=== PATIENT | male | born 1990 | race Asian ===

== ENCOUNTER 2020-07-10 21:59 | Emergency (ER) | payer BC, SELFPAY ==
[2020-07-10 22:01] VITALS: BP 130/104; PULSE 92; RESP 15; TEMP 36.9; O2SAT 100
--- NOTE | 2020-07-10 23:11 | ED.GENADULT ---
HPI - General Adult General Chief complaint: Unspecified Stated complaint: cough, headache, n/v, rec covid test Time Seen by Provider: 07/10/20 22:38 History of Present Illness HPI narrative: Patient is a 30-year-old male who presents ER with request for Covid test. Reports a coworker's brother tested positive and that person is on quarantine. He was exposed to that person. Reports he is recently developed cough as well as intermittent headache. He is also got some mild nausea with vomiting. No chest pain or chest pressure no. Persistent shortness of breath. Related Data Home Medications Medication Instructions Recorded Confirmed No Home Medications 07/10/20 07/10/20 Allergies Allergy/AdvReac Type Severity Reaction Status Date / Time No Known Allergies Allergy Verified 07/10/20 22:01 Review of Systems Constitutional: Constitutional: Denies chills and Denies fever(s) ENT: Reports headache(s) Respiratory: Respiratory: Reports cough and Reports dyspnea Gastrointestinal: Gastrointestinal: Reports nausea and Reports vomiting PMFSH Past Medical History Medical History (Updated 07/10/20 @ 23:35 by Jakob Boyd MD) Healthy adult male Surgical History Surgical History (Updated 07/10/20 @ 23:33 by Jakob Boyd MD) No history of previous surgery Social History Social History (Updated 07/10/20 @ 23:33 by Jakob Boyd MD) Tobacco type: e-cigarettes/vaping Gender identity (if verbalized by the patient): Male Exam Narrative: Exam Narrative: GENERAL: Well-appearing, well-nourished, and in no acute distress. HEAD: Normocephalic, atraumatic. CHEST: Clear to auscultation. No respiratory distress. HEART: Regular rate and rhythm. Normal peripheral pulses. EXTREMITIES: Normal range of motion. No edema. NEURO: Alert and oriented x3. PSYCH: Normal mood and affect. Course Course Emergency Course: Swabbed here, discharged home. Vital Signs Vital signs: Vital Signs Temperature 98.4 F 07/10/20 22:01 Pulse Rate 92 07/10/20 22:01 Respiratory Rate 15 07/10/20 22:01 Blood Pressure 130/104 H 07/10/20 22:01 Pulse Oximetry 100 07/10/20 22:01 Temperature 98.4 F 07/10/20 22:01 Pulse Rate 92 07/10/20 22:01 Respiratory Rate 15 07/10/20 22:01 Blood Pressure 130/104 H 07/10/20 22:01 Pulse Oximetry 100 07/10/20 22:01 Medical Decision Making Vital Signs Vital Signs: Vital Signs Temperature 98.4 F 07/10/20 22:01 Pulse Rate 92 07/10/20 22:01 Respiratory Rate 15 07/10/20 22:01 Blood Pressure 130/104 H 07/10/20 22:01 Pulse Oximetry 100 07/10/20 22:01 Temperature 98.4 F 07/10/20 22:01 Pulse Rate 92 07/10/20 22:01 Respiratory Rate 15 07/10/20 22:01 Blood Pressure 130/104 H 07/10/20 22:01 Pulse Oximetry 100 07/10/20 22:01 Lab Data Labs: Lab Results 07/10/20 Range/Units 22:51 SARS-CoV-2 RNA (RT-PCR) Pending Discharge Plan Discharge Clinical Impression: Person under investigation for COVID-19 Patient Disposition: Home, Self-Care Condition: Stable Instructions: COVID-19 (Coronavirus Disease 2019) (ED) Additional Instructions: Please self quarantine until you receive your Covid results. Return the ER if you have worsening shortness of breath, cannot keep down food or water, you have additional concerns. Take Tylenol and ibuprofen for body aches and fever. Prescriptions: No Action No Home Medications RF: 0 Follow-up/Referrals: Denny Rueda MD [Physician] - 1 Week PHYSICIAN,[employer]EARCH [employer] TECH[employer]IST [Primary Care Provider] - Stand Alone Forms: Work/School Release IP
[2020-07-10 23:59] VITALS: BP 127/81; PULSE 74; RESP 16; TEMP 37.2; O2SAT 98
[2020-07-11 14:53] LABS: SARS-CoV-2 RNA PCR Negative
== END 2020-07-11 00:01 | disposition home or self-care (01) ==
LOC: ANHED 23:54
PROVIDERS: Emergency Provider Emergency Medicine
DX: R05 Cough (principal); Z20.828 Contact with and (suspected) exposure to other viral communicable diseases
CPT/HCPCS: 87635; 99283; C9803; U0003